=== PATIENT | male | born 1965 | race Caucasian/White ===

== ENCOUNTER 2018-05-06 08:51 | Day surgery (SDC) | payer BC ==
[~2018-05-06] VITALS: Ht 180.3 cm; Wt 80.9 kg
[~2018-05-06 08:51] MED LIST: AMITRIPTYLINE H25 M1 PO; BALSALAZIDE DI750 MG PO; HUMIRA40 MG/0.1 SC; NORVASC 5MG5 MG/TAB PO; PREDNISONE10 MG PO; PRINZIDE 25 MG-1 TAB PO
[2018-05-06] MEDS ORDERED: REMICADE V100 MG/VIA IV (09:09)
[2018-05-06 09:20] VITALS: BP 131/90; PULSE 77; TEMP 98.2
[2018-05-06 11:15] VITALS: BP 109/72; PULSE 77; TEMP 97.7
[2018-05-06 11:30] VITALS: BP 121/87; PULSE 66
[2018-05-06 11:45] VITALS: BP 137/88; PULSE 65
[2018-05-06 12:00] VITALS: BP 150/94; PULSE 66
[2018-05-06 12:05] VITALS: BP 90/60; PULSE 84
== END 2018-05-06 12:24 | disposition home or self-care (01) ==
LOC: SDCO 08:51
DX: D12.5 Benign neoplasm of sigmoid colon (principal); K63.5 Polyp of colon; K52.9 Noninfective gastroenteritis and colitis, unspecified; K64.0 First degree hemorrhoids; I10 Essential (primary) hypertension; L40.9 Psoriasis, unspecified; Z88.0 Allergy status to penicillin; Z88.8 Allergy status to other drugs, medicaments and biological substances; M19.90 Unspecified osteoarthritis, unspecified site; F17.220 Nicotine dependence, chewing tobacco, uncomplicated
CPT/HCPCS: J2704; J7120

== ENCOUNTER 2020-07-26 07:28 | Day surgery (SDC) | payer BC ==
[~2020-07-26] VITALS: Ht 180.3 cm; Wt 78.8 kg
[~2020-07-26 07:28] MED LIST changes: +REMICADE V100 MG/VIA IV
[2020-07-26 08:21] VITALS: BP 129/104; PULSE 74; TEMP 98.6
[2020-07-26 09:40] VITALS: BP 120/75; PULSE 64; TEMP 97.8
[2020-07-26 09:55] VITALS: BP 123/76; PULSE 58
[2020-07-26 10:10] VITALS: BP 122/83; PULSE 59
--- NOTE | 2020-07-26 10:21 | NUR ---
0940 PATIENT TO [facility] [place] VIA CART. PATIENT AMBULATED TO CHAIR WITH SBA. VSS. WARM BLANKET GIVEN FOR COMFORT. PATIENT ONLY WANTED WATER TO DRINK. [address] CLARK IN ROOM SPEAKING WITH PATIENT. 1005 IV D/C'D. CATH TIP INTACT. TOLERATED WELL. WASTED 200 ML LR. D/C INSTRUCTIONS AND INFORMATION GIVEN VERBALLY AND WRITTEN. PATIENT VERBALIZED UNDERSTANDING. QUESIONS INVITED AND ANSWERED. 1023 PATIENT D/C'D TO POV WITH FRIEND VIA W/C. PATIENT WITH PERSONAL BELONGINGS AND DISCHARGE INSTRUCTIONS.
== END 2020-07-26 10:23 | disposition home or self-care (01) ==
LOC: SDCO 07:28
DX: K51.311 Ulcerative (chronic) rectosigmoiditis with rectal bleeding (principal); I10 Essential (primary) hypertension; M19.90 Unspecified osteoarthritis, unspecified site; L40.9 Psoriasis, unspecified; F17.220 Nicotine dependence, chewing tobacco, uncomplicated; Z88.0 Allergy status to penicillin; Z88.1 Allergy status to other antibiotic agents
CPT/HCPCS: J2704; J7120

== ENCOUNTER 2024-03-30 06:27 | Day surgery (SDC) | payer BC ==
[~2024-03-30] VITALS: Ht 177.8 cm; Wt 72.8 kg
[~2024-03-30 06:27] MED LIST changes: +LR 1,000 ML IV SCH; +Ondansetron 4 MG/2 ML VIAL IV PRN
[2024-03-30] MEDS ORDERED: FLOMAX 0.40.4 MG/CAP PO (07:07)
[2024-03-30 07:25] VITALS: BP 112/95; PULSE 67; TEMP 97.9
[2024-03-30] MEDS ORDERED: Lidocaine PF 2% (20 MG/ML) 5 ML VIAL ONE (08:09)
[2024-03-30] MEDS ORDERED: fentaNYL 50 MCG/ML 2 ML VIAL ONE (08:09)
[2024-03-30 09:01] VITALS: BP 92/61; PULSE 63
--- NOTE | 2024-03-30 09:11 | NUR ---
0905 PATIENT RETURNS TO [facility] [place] [facility] VIA CART. PT AWAKE AND ALERT. RESPIRATIONS UNLABORED. AMBULATED TO RECLINER CHAIR WITH 2:1 SBA. PT DENIES NAUSEA OR ABDOMINAL PAIN. HOOKED UP TO MONITOR AND VS OBTAINED. CALL LIGHT AT SIDE AND PRESENT. 0910 PATIENT TOLERATING ICE WATER WITHOUT NAUSEA OR DIFFICULTY SWALLOWING. 09 DR. CLARK IN ROOM SPEAKING WITH PATIENT. 09 D/C INSTRUCTIONS REVIEWED WITH PATIENT. PT VERBALIZED UNDERSTANDING AND A COPY OF INSTRUCTIONS PROVIDED IN D/C FOLDER. 0940 PATIENT DRESSES SELF. 0955 PATIENT DISCHARGED FROM UNIT VIA W/C TO A PERSONAL VEHICLE. PT LEFT HOSPITAL IN STABLE CONDITION.
== END 2024-03-30 09:55 | disposition home or self-care (01) ==
LOC: SDCO 06:27
DX: Z12.11 Encounter for screening for malignant neoplasm of colon (principal); K51.40 Inflammatory polyps of colon without complications; K51.30 Ulcerative (chronic) rectosigmoiditis without complications; I10 Essential (primary) hypertension; Z79.899 Other long term (current) drug therapy
CPT/HCPCS: J2704; J3010; J7120